=== PATIENT | female | born 2000 | race Caucasian/White ===

== ENCOUNTER 2019-04-19 09:15 | Inpatient (IN) ==
[2019-04-19 10:37] LABS: Basophils # 0.1 K/mcL (0.0-0.2); Basophils % 0.6 %; Eosinophils # 0.1 K/mcL (0.0-0.6); Hematocrit 34.2 % (35.3-44.9); Hemoglobin 11.5 g/dL (11.5-15.4); Immature Granulocytes % 1.4 % (0-4); Lymphocytes # 1.9 K/mcL (0.6-4.6); Lymphocytes % 17.1 %; Mean Corpuscular HGB Conc 33.6 g/dL (31.6-35.5); Mean Corpuscular Hemoglobin 28.1 pg (28.0-33.3); Mean Corpuscular Volume 83.6 fL (83.0-100.0); Mean Platelet Volume 11.3 fL (9.4-12.4); Monocytes % 8.8 %; Platelet Count 250 K/mcL (140-400); Red Blood Count 4.09 M/mcL (3.82-4.97); Red Cell Distribution Width 12.4 % (11.5-14.5); Segmented Neutrophils % 71.1 %
[2019-04-19 10:57] LABS: Alanine Aminotransferase 14 Units/L (7-52); Aspartate Amino Transferase 16 Units/L (13-39); BUN/Creatinine Ratio 17 (6-26); Blood Urea Nitrogen 7 mg/dL (6-20); Lactate Dehydrogenase 163 Units/L (140-271); Uric Acid 5.2 mg/dL (2.3-7.6); eGFR For Non-African Americans > 60
[2019-04-19 11:28] LABS: Protein/Creatinine Ratio,Urine 0.39 mg/mg (0.00-0.20)
[2019-04-19] MEDS ORDERED: Metoclopramide 10 MG/2 ML VIAL IVP PRN (11:37)
[2019-04-19] MEDS ORDERED: Famotidine 20 MG/2 ML VIAL IVP PRN (11:37)
[2019-04-19] MEDS ORDERED: Naloxone 0.4 MG/ML INJ IVP PRN (11:37)
[2019-04-19] MEDS ORDERED: *HR* Nalbuphine 10 MG/ML AMPUL IVP PRN (11:37)
[2019-04-19] MEDS ORDERED: Ringers Solution, Lactated 1,000 ML IVC SCH (11:45)
[2019-04-19] MEDS ORDERED: Oxytocin 20 units/ LR 1000 mL 20 UNIT/1,000 ML BAG IVC SCH ×2 (11:45→18:00)
--- NOTE | 2019-04-19 12:33 | OB/GYN History & Physical ---
Date of Encounter: 04/19/19 Time of Encounter: 12:02 Assessment and Plan (1) 38 weeks gestation of Current visit: Yes Status: Acute Admitted for IOL dt pre-eclampsia Pitocin started Continue with expectant management Patient not currently planning for epidural GBS negative (2) Pre-eclampsia Current visit: Yes Status: Acute SBP in 140s No CORTEZ, visual changes, RUQ pain PC 0.39 Plan for IOL as states above Qualifiers: Trimester: third trimester Qualified Code(s): O14.93 - Unspecified pre- eclampsia, third trimester (3) Sinus tachycardia Current visit: Yes Status: Acute Had holter monitor outpatient with sinus tachycardia HR stable since arrival May use Metoprolol if needed History of Present Illness Chief complaint: IOL at 38 weeks for pre-eclampsia HPI: Leonila Aragon is a 18 year old female at 38+1, patient of Dr. Lewis with history of pre-eclampsia in previous who presented to L&D due to vaginal bleeding this morning, which she describes as dark red light period-like bleeding. Patient also admits to nausea today. Admits to good movement, in consistent contractions, and denies LOF. Denies CORTEZ, visual changes, RUQ pain currently. Patient does have a history of CORTEZ outside of/during that sometimes improves with ASA and Tylenol. She takes Metoprolol 25mg QD due to maternal tachycardia in , which was started on 04/09 with plan to induce at 39 weeks. Vaginal bleeding appears to have resolved, however patient's blood pressure was elevated to 140s SBP and pre-eclampsia labs showed PC ratio of 0.39 and total urine protein of 52, therefore patient is being admitted. Previous significant for pre-eclampsia due to elevated BP but asymptomatic that resulted in induction at 37 weeks, no additional complications. No other significant PMH, or SHx. Patient denies tobacco, alcohol, or illicit drug use. Denies hx of STIs. O+ GBS negative RPR non-reactive Hep B SAG non-reactive Liborio C non-reactive HIV Ag/Ab non-reactive Rubella immune Varicella non-immune Past Med Surg Social Fam HX - Past Medical History Medical history: no medical history Psychiatric history: no psych history - Past Surgical History Surgical History: no surgical history - Social History Smoking Status: Never smoker Smokeless Tobacco Status: No Alcohol use: none Drug use: none - Family History Mother Adopted: [place]: Audra Tapia Age: 44 Family Member Ethnicity: Non- Living Status: Still Living Hx Family Respiratory Disorders: No Hx Family Cancer: No Hx Family GI Disorders: No Hx Family Genitourinary Disorders: No Hx Family Endocrine Disorder: No Hx Family Musculoskeletal Disorders: No Hx Family Neuromuscular Disorders: No Hx Family Neurologic Disorders: No Hx Family HEENT Disorders: No Hx Family Autoimmune Disorders: No Hx Family Reproductive Disorders: No Hx Family Psychosocial Disorders: No Hx Family Medical Disorders: No Obstetrical History - Pregnancies : 2 Para: 1 Term: 1 : 0 Ab's: 0 Livin - History/Complications History/Complications: Pre-Eclampsia Maternal Tachycardia in Medications and Allergies Aspirin 81 mg PO DAILY 04/19/19 [History] Metoprolol 25 mg PO DAILY 04/19/19 [History] Vitamin Tablet 1 tab PO DAILY 04/19/19 [History] Allergy/AdvReac Type Severity Reaction Status Date / Time No Known Allergies Allergy Verified 04/19/19 13:28 Review of System OB - Constitutional Constitutional ROS IM: no chills, no fever(s), no headache(s) - Nose, mouth, and throat Nose, mouth and throat: no dizziness, no headache(s) - Cardiovascular Cardiovascular: edema, no chest pain, no dyspnea, no palpitations - Respiratory Respiratory: no cough, no wheezing - Gastrointestinal Gastrointestinal: nausea, no diarrhea, no vomiting - Genitourinary Genitourinary: abnormal vaginal bleeding, no difficulty urinating, no flank pain - Neurological Nerological: no headache(s), no loss of vision, no radicular pain - Psychiatric Psychiatric: no behavioral changes, no confusion - Hematologic/Lymphatic Hematologic/Lymphatic: no easy bleeding Exam - Constitutional Constitutional: well developed, well nourished, no acute distress - HEENT HEENT: EOMI, Normocephaly, Mucus Membranes Moist - Lungs Respiratory exam: CTAB - Cardiovascular Cardiovascular exam: +S1, +S2, tachycardia - Abdomen Abdomen: Present: bowel sounds normal, gravid, non tender - Extremities Extremities exam: normal inspection, pedal edema (non-pitting) Deep Tendon Reflex Grade: 2+ Normal - Cervix Dilation: 4 Effacement: 80 Station: -2 - Uterus Uterus exam: Present: normal size, normal contour Results Result Diagrams: 04/19/19 10:25 04/19/19 10:25 Abnormal lab results WBC 11.3 K/mcL (4.3-11.1) H 04/19/19 10:25 Hct 34.2 % (35.3-44.9) L 04/19/19 10:25 0.41 mg/dL (0.60-1.20) L 04/19/19 10:25 Protein/Creatinin Ratio 0.39 mg/mg (0.00-0.20) H 04/19/19 10:50 52 mg/dL (1-14) H 04/19/19 10:50 All other labs normal. - VTE Reasons for not Prescribing Prophylaxis: Treatment not Indicated - Low risk for VTE
--- NOTE | 2019-04-19 15:32 | Event Note ---
Date of Encounter: 04/19/19 Time of Encounter: 15:30 Called to see patient at bedside with concern for (variable) deceleratioN(S). Patient still desires NO epidural. The patient is feeling the contraction(S) and breathing through them. Mother and FOB at bedside. Regardless, we discussed getting an epidural prior to AROM but the patient declined. AROM performed with amniohook and IUPC placed. Thin/light meconium appreciated. SVE: 4-5/90/-2 IUPC placed without difficulty. Patient doing well, and baby tolerated AROM and IUPC placement. OK for epidural when patient desires. MD TONY
[2019-04-19] MEDS ORDERED: Ondansetron 4 MG/2 ML VIAL IVP PRN (17:12)
[2019-04-19] MEDS ORDERED: Lanolin 7 G OINT...G. TP PRN (17:55)
[2019-04-19] MEDS ORDERED: Benzocaine/Menthol 56 GM AEROSOL SPRAY TP PRN (17:55)
[2019-04-19] MEDS ORDERED: Acetaminophen 325 MG TABLET PO PRN (17:55)
--- NOTE | 2019-04-19 18:03 | OB/GYN Procedure Note ---
Delivery - Delivery Date: 04/19/19 Provider: Barbara Lewis Intrapartum events: none Delivery induction: AROM, oxytocin Delivery monitor: external FHT, internal uterine Anesthesia: none Quantitated Blood Loss: 300 - Infant (s) A Infant Delivery Date: 04/19/19 Presentation: vertex, compound Position: OA Route of delivery: Gender: Male Viability: Viable Pounds: 8 Ounces: 12 at 1 minute: 8 at 5 mins: 9 Specimens collected: cord blood Placenta: spontaneous Cord: other (Body cord, delivered through) - Repair Episiotomy: midline Laceration Description: Perineal - 2nd Degree, Superficial - Complications Delivery complications: none - Comments Comments: Called to see patient at bedside. Patient C/C/+1, actively pushing to C/C/+3. Bed was broken down and the patient was coached through her final push. With three strong pushes with 1 contraction, the patient delivered. Baby presented in the OA/compound presentation. Restitution BERYL. BOdy delivered without complication. Infant was placed on maternal abdomen and stimulated while being suctioned with bulb. After 60 second cord delay, we clamped and cut the cord. Cord blood collected. Infant was vigorous and crying, no gases were collected. We then focused are attention to the placenta. We then delivered the placenta with gentle but appropriate traction. The placenta delivered intact. We started IV pitocin immediately following delivery. Lidocaine was then injected in three separate locations, after appreciating a superficial 2nd degree laceration (likely from the compound presentation). We repaired the 2nd degree laceration using 3-0 vicryl in usual fashion. Hemostasis was appreciated after repair. All counts were correct x3. EBL: 300mL Weight: 8#12oz Repairs: 2nd degree perineal laceration Specimens sent: Cord blood, did not send for gases, did not send for placenta. MD TONY
[2019-04-19] MEDS: Ibuprofen 600 MG TABLET PO PRN (20:43)
[2019-04-20 04:53] LABS: Basophils # 0.1 K/mcL (0.0-0.2); Basophils % 0.5 %; Eosinophils # 0.1 K/mcL (0.0-0.6); Eosinophils % 0.8 %; Hematocrit 32.1 % (35.3-44.9); Hemoglobin 10.7 g/dL (11.5-15.4); Immature Granulocytes % 1.3 % (0-4); Lymphocytes # 2.7 K/mcL (0.6-4.6); Lymphocytes % 22.4 %; Mean Corpuscular HGB Conc 33.3 g/dL (31.6-35.5); Mean Corpuscular Hemoglobin 27.9 pg (28.0-33.3); Mean Corpuscular Volume 83.8 fL (83.0-100.0); Mean Platelet Volume 11.6 fL (9.4-12.4); Monocytes # 1.1 K/mcL (0.0-1.3); Neutrophils # 7.8 K/mcL (1.6-8.9); Platelet Count 205 K/mcL (140-400); Red Blood Count 3.83 M/mcL (3.82-4.97); Red Cell Distribution Width 12.4 % (11.5-14.5)
[2019-04-20] MEDS: Ibuprofen 600 MG TABLET PO PRN ×2 (06:02→14:03)
[2019-04-20] MEDS ORDERED: Prenatal Vit/FA 1 EACH TABLET PO SCH (09:00)
--- NOTE | 2019-04-20 09:11 | Discharge Summary ---
Date of Encounter: 04/20/19 Time of Encounter: 09:05 - Discharge Diagnosis (1) Vaginal delivery Priority: Primary Status: Acute Comments: S/P vaginal delivery day 1. Pain is well controlled Lochia light Voiding without difficulty Tolerating regular diet and passing flatus bottle and breast feeding Discharge today - Discharge Medications Prescriptions: New Breast Pump [BREAST PUMP] 1 each .ROUTE AD #1 each Docusate [Colace] 100 mg PO BID #30 capsule Benzocaine/Menthol Gorin [Dermoplast Gorin] 1 appl TP QID PRN aerosol PRN Reason: See Comments Ferrous Sulfate 325 mg PO 0800 #90 tablet Lanolin [Lansinoh] 1 appl TP QID PRN oint...g. PRN Reason: Ibuprofen [Motrin] 600 mg PO Q6HR PRN #30 tablet PRN Reason: Cramping Acetaminophen [Tylenol] 650 mg PO Q6HR PRN tablet PRN Reason: Mild Pain Continued Vitamin Tablet 1 tab PO DAILY Metoprolol 25 mg PO DAILY Discontinued Aspirin 81 mg PO DAILY Home Medications: Metoprolol 25 mg PO DAILY 04/19/19 [History] Vitamin Tablet 1 tab PO DAILY 04/19/19 [History] Acetaminophen [Tylenol] 650 mg PO Q6HR PRN tablet 04/20/19 [Rx] Benzocaine/Menthol Gorin [Dermoplast Gorin] 1 appl TP QID PRN aerosol 04/20/19 [Rx] Breast Pump [BREAST PUMP] 1 each .ROUTE AD #1 each 04/20/19 [Rx] Docusate [Colace] 100 mg PO BID #30 capsule 04/20/19 [Rx] Ferrous Sulfate 325 mg PO 0800 #90 tablet 04/20/19 [Rx] Ibuprofen [Motrin] 600 mg PO Q6HR PRN #30 tablet 04/20/19 [Rx] Lanolin [Lansinoh] 1 appl TP QID PRN oint...g. 04/20/19 [Rx] Allergies/Adverse Reactions: Allergy/AdvReac Type Severity Reaction Status Date / Time No Known Allergies Allergy Verified 04/19/19 13:28 Data Procedures and tests throughout hospitalization: Laboratory Tests 04/19/19 04/19/19 04/19/19 10:25 10:25 10:50 WBC 11.3 H RBC 4.09 Hgb 11.5 Hct 34.2 L MCV 83.6 MCH 28.1 MCHC 33.6 RDW 12.4 Plt Count 250 MPV 11.3 Immature Gran % 1.4 Seg Neutrophils % 71.1 Lymphocytes % 17.1 Monocytes % 8.8 Eosinophils % 1.0 Basophils % 0.6 Neutrophils # 8.0 Lymphocytes # 1.9 Monocytes # 1.0 Eosinophils # 0.1 Basophils # 0.1 BUN 7 Creatinine 0.41 L Est GFR ( Amer) > 60 Est GFR (Non-Af Amer) > 60 BUN/Creatinine Ratio 17 Uric Acid 5.2 AST 16 ALT 14 Lactate Dehydrogenase 163 Urine Creatinine 134 Protein/Creatinin Ratio 0.39 H Urine Total Protein 52 H 04/20/19 04:06 WBC 11.8 H RBC 3.83 Hgb 10.7 L Hct 32.1 L MCV 83.8 MCH 27.9 L MCHC 33.3 RDW 12.4 Plt Count 205 MPV 11.6 Immature Gran % 1.3 Seg Neutrophils % 66.0 Lymphocytes % 22.4 Monocytes % 9.0 Eosinophils % 0.8 Basophils % 0.5 Neutrophils # 7.8 Lymphocytes # 2.7 Monocytes # 1.1 Eosinophils # 0.1 Basophils # 0.1 BUN Creatinine Est GFR ( Amer) Est GFR (Non-Af Amer) BUN/Creatinine Ratio Uric Acid AST ALT Lactate Dehydrogenase Urine Creatinine Protein/Creatinin Ratio Urine Total Protein Labs on day of discharge: Labs from last 24 hours 04/20/19 04/19/19 04/19/19 04:06 10:50 10:25 WBC 11.8 H RBC 3.83 Hgb 10.7 L Hct 32.1 L MCV 83.8 MCH 27.9 L MCHC 33.3 RDW 12.4 Plt Count 205 MPV 11.6 Immature Gran % 1.3 Seg Neutrophils % 66.0 Lymphocytes % 22.4 Monocytes % 9.0 Eosinophils % 0.8 Basophils % 0.5 Neutrophils # 7.8 Lymphocytes # 2.7 Monocytes # 1.1 Eosinophils # 0.1 Basophils # 0.1 BUN 7 Creatinine 0.41 L Est GFR ( Amer) > 60 Est GFR (Non-Af Amer) > 60 BUN/Creatinine Ratio 17 Uric Acid 5.2 AST 16 ALT 14 Lactate Dehydrogenase 163 Urine Creatinine 134 Protein/Creatinin Ratio 0.39 H Urine Total Protein 52 H 04/19/19 10:25 WBC 11.3 H RBC 4.09 Hgb 11.5 Hct 34.2 L MCV 83.6 MCH 28.1 MCHC 33.6 RDW 12.4 Plt Count 250 MPV 11.3 Immature Gran % 1.4 Seg Neutrophils % 71.1 Lymphocytes % 17.1 Monocytes % 8.8 Eosinophils % 1.0 Basophils % 0.6 Neutrophils # 8.0 Lymphocytes # 1.9 Monocytes # 1.0 Eosinophils # 0.1 Basophils # 0.1 BUN Creatinine Est GFR ( Amer) Est GFR (Non-Af Amer) BUN/Creatinine Ratio Uric Acid AST ALT Lactate Dehydrogenase Urine Creatinine Protein/Creatinin Ratio Urine Total Protein Date of admission: 04/19/19 17:38 Primary care physician: PCP NONE Consults: 04/19/19 17:55 Consult to Simulation Analyst [CONS] Routine Comment: Vaginal delivery, consult needed Discharging clinician: Barbara Segura Anticipated date of discharge: 04/20/19 - Patient Status Disposition: Home, Self-Care Condition: Good Overall status at discharge: patient is back to baseline - Discharge Instructions Follow Up With: EMILEE,PCP [Primary Care Provider] - Barbara Lewis MD [Partnered Physician] - - Diet and Activity Activity: increase activity as tolerated Diet: regular diet Hospital Course Reason for admission: IUP at term Delivery: Episiotomy: midline Laceration: 2nd degree Other procedures: none complications: none Discharge diagnosis: IUP at term delivered baby: male Time Attestation: Total time spent providing and/or coordinating discharge services: Time Spent: Less than 30 minutes Exam - Constitutional Vitals: Temp Pulse Resp BP Pulse Ox 98 F 85 16 116/76 98 04/20/19 08:02 04/20/19 08:02 04/20/19 08:02 04/20/19 08:02 04/20/19 08:02 General appearance IM: cooperative, A&O X 3, pleasant - Respiratory Respiratory exam: Present: CTAB - Cardiovascular Cardiovascular exam IM: Present: RRR, +S1, +S2 - GI/Abdominal GI/Abdominal exam IM: normal bowel sounds, soft - Rectal Rectal exam: deferred - Uterine Tone: Firm Uterus Position: At Umbilicus, Midline - Extremities Exam Extremities exam IM: Present: normal capillary refill, normal inspection - Neurological Exam Neurological exam: alert, oriented X3
[2019-04-20 15:57] VITALS: BP 128/84
== END 2019-04-20 18:55 | disposition home or self-care (01) | DRG 807 ==
LOC: 1NENULAB → OBSVTOIN 09:15 → 1NENUOBS 20:21
PROVIDERS: ADMIT Student in an Organized Health Care Education/Training Program; ATTEND Student in an Organized Health Care Education/Training Program

== ENCOUNTER 2020-02-01 09:10 | Observation (INO) ==
[2020-02-01] MEDS ORDERED: Ketorolac 15 MG/ML VIAL IVP ONE (09:31)
[2020-02-01] MEDS ORDERED: 0.9 % Sodium Chloride 1,000 ML IVC STA (09:31)
[2020-02-01] MEDS ORDERED: Ondansetron 4 MG/2 ML VIAL IVP STA (09:31)
[2020-02-01 09:52] LABS: Bilirubin,Urine Negative (Negative); Blood,Urine Negative (Negative); Clarity,Urine Cloudy (Clear); Color,Urine Yellow (Yellow); Glucose,Urine (UA) Normal (Normal); Ketones,Urine 15 mg/dL (Negative); Leukocyte Esterase,Urine Trace (Negative); Nitrite,Urine Negative (Negative); Protein,Urine 30 mg/dL (Neg-Trace); Specific Gravity,Urine 1.029 (1.010-1.025); Urobilinogen,Urine Normal (Normal)
[2020-02-01 09:55] LABS: Bacteria,Urine Few per hpf (None-Few); Hyaline Casts,Urine None Seen per lpf (None-Few); Squamous Epithelial Cell,Urine Many per lpf (None-Few)
[2020-02-01 10:13] LABS: Basophils # 0.1 K/mcL (0.0-0.2); Basophils % 0.3 %; Eosinophils % 0.2 %; Hematocrit 41.3 % (35.3-44.9); Immature Granulocytes % 0.5 % (0-4); Lymphocytes # 2.1 K/mcL (0.6-4.6); Lymphocytes % 11.8 %; Mean Corpuscular HGB Conc 33.9 g/dL (31.6-35.5); Mean Corpuscular Hemoglobin 28.2 pg (28.0-33.3); Mean Corpuscular Volume 83.1 fL (83.0-100.0); Mean Platelet Volume 10.5 fL (9.4-12.4); Monocytes # 0.8 K/mcL (0.0-1.3); Monocytes % 4.5 %; Neutrophils # 14.7 K/mcL (1.6-8.9); Platelet Count 347 K/mcL (140-400); Red Blood Count 4.97 M/mcL (3.82-4.97); Red Cell Distribution Width 12.3 % (11.5-14.5); Segmented Neutrophils % 82.7 %; White Blood Count 17.8 K/mcL (4.3-11.1)
[2020-02-01 10:33] LABS: Alanine Aminotransferase 17 Units/L (7-52); Albumin/Globulin Ratio 1.6 (1.1-2.2); Alkaline Phosphatase 92 Units/L (34-104); Aspartate Amino Transferase 13 Units/L (13-39); BUN/Creatinine Ratio 22 (6-26); Bilirubin,Direct 0.3 mg/dL (0.0-0.2); Bilirubin,Indirect 0.5 mg/dL (0.0-1.0); Bilirubin,Total 0.8 mg/dL (0.3-1.0); Blood Urea Nitrogen 11 mg/dL (6-20); Calcium 9.7 mg/dL (8.6-10.3); Carbon Dioxide 22 mEq/L (23-29); Chloride 102 mEq/L (98-107); Globulin 3.1 g/dL (2.4-3.5); Glucose 123 mg/dL (70-105); Osmolality,Calculated 279 (280-300); Potassium 3.6 mEq/L (3.5-5.1); Sodium 134 mEq/L (136-145); Total Protein 8.1 g/dL (6.4-8.9); eGFR For African Americans > 60 (> 60); eGFR For Non-African Americans > 60 (> 60)
[2020-02-01] MEDS ORDERED: Ampicillin/Sulbactam 3,000 MG in 0.9 % Sodium Chloride Mini Bag 100 ML IVPB ONE (13:32)
[2020-02-01] MEDS ORDERED: Ondansetron 4 MG/2 ML VIAL IVP PRN (16:58)
[2020-02-01] MEDS: 0.9 % Sodium Chloride 1,000 ML IVC SCH (17:20)
[2020-02-01] MEDS: Acetaminophen IV 1,000 MG/100 ML INFUS..BTL IVPB SCH ×2 (18:16→23:33)
[2020-02-01] MEDS: Ampicillin/Sulbactam 3,000 MG in 0.9 % Sodium Chloride Mini Bag 100 ML IVPB SCH ×2 (18:20→23:34)
[2020-02-02] MEDS: 0.9 % Sodium Chloride 1,000 ML IVC SCH ×2 (02:34→12:30)
[2020-02-02] MEDS: Acetaminophen IV 1,000 MG/100 ML INFUS..BTL IVPB SCH ×3 (06:34→17:23)
[2020-02-02] MEDS: Ampicillin/Sulbactam 3,000 MG in 0.9 % Sodium Chloride Mini Bag 100 ML IVPB SCH ×2 (08:03→13:58)
[2020-02-02] MEDS ORDERED: Pantoprazole 40 MG VIAL IVP SCH (09:00)
[2020-02-02] MEDS ORDERED: *HR* Midazolam HCl 2 MG/2 ML VIAL ONE (19:43)
[2020-02-02] MEDS ORDERED: *HR* FentaNYL (PF) 100 MCG/2 ML VIAL ONE (19:43)
[2020-02-02] MEDS ORDERED: *HR* Propofol 200 MG/20 ML VIAL IVP ONE (19:44)
[2020-02-02] MEDS ORDERED: *HR* Succinylcholine 200 MG/10 ML VIAL IVP ONE (19:45)
[2020-02-02] MEDS ORDERED: Lidocaine -MPF 2% 2 ML VIAL ONE (19:45)
[2020-02-02] MEDS ORDERED: Ondansetron 4 MG/2 ML VIAL ONE (19:45)
[2020-02-02] MEDS ORDERED: Dexamethasone 4 MG/ML VIAL ONE (19:45)
[2020-02-02] MEDS ORDERED: *HR* OxyCODONE Immed Rel 5 MG TABLET PO PRN (19:56)
[2020-02-02] MEDS ORDERED: *HR* HYDROmorphone PF 0.5 MG/0.5 ML SYRINGE IVP PRN (19:56)
[2020-02-02] MEDS ORDERED: *HR* Cisatracurium 10 MG/5 ML VIAL IV ONE (20:01)
[2020-02-02] MEDS ORDERED: Acetaminophen IV 1,000 MG/100 ML INFUS..BTL ONE (20:01)
[2020-02-02] MEDS ORDERED: Lidocaine HCL 4 ML Topical Solution (Laryng-O-Jet Kit Sterile Pak) TP ONE (20:19)
[2020-02-02] MEDS ORDERED: Ondansetron 4 MG/2 ML VIAL IVP PRN (22:54)
[2020-02-03] MEDS: Acetaminophen IV 1,000 MG/100 ML INFUS..BTL IVPB SCH ×2 (00:16→05:29)
[2020-02-03] MEDS: Ampicillin/Sulbactam 3,000 MG in 0.9 % Sodium Chloride Mini Bag 100 ML IVPB SCH ×2 (03:54→08:02)
[2020-02-03 07:43] VITALS: BP 123/67
[2020-02-03] MEDS ORDERED: Pantoprazole 40 MG VIAL IVP SCH (09:00)
== END 2020-02-03 11:31 | disposition home or self-care (01) ==
LOC: EMEROOARM 09:10 → 3ANU 09:10
PROVIDERS: ADMIT Surgery; ATTEND Surgery